=== PATIENT | female | born 2000 | race Two or more races ===

== ENCOUNTER 2024-01-01 08:39 | Emergency (ER) | payer BC ==
[2024-01-01] MEDS ORDERED: ACETAMINOPHEN 325 MG TABLET (FP) ONE (09:35)
[2024-01-01 09:45] VITALS: TEMP 98.3; BMI 30.2
[2024-01-01] MEDS: ACETAMINOPHEN 325 MG TABLET (FP) PO ONE (09:46)
[2024-01-01 09:51] LABS: BASO % 0.4 % (0-2.0); EOS % 2.3 % (0-4.5); HEMATOCRIT 35.8 % (32.4-45.2); HEMOGLOBIN 12.4 GM/dL (10.7-15.3); LYMPH % 27.3 % (8-40); MCH 30.5 pg (25.7-33.7); MCHC 34.7 g/dl (32.0-36.0); MEAN PLT VOLUME 9.8 fl (7.5-11.1); MONO % 5.6 % (3.8-10.2); NEUT % 64.4 % (42.8-82.8); PLATELET COUNT 254 10^3/uL (134-434); RBC 4.06 M/mm3 (3.60-5.2); RDW 13.3 % (11.6-15.6); WHITE BLOOD COUNT 8.6 K/mm3 (4.0-10.0)
[2024-01-01 10:40] LABS: POTASSIUM 3.9 mmol/L (3.5-5.1)
[2024-01-01 10:43] LABS: ALBUMIN 3.4 g/dl (3.4-5.0); CALCIUM 8.7 mg/dL (8.5-10.1)
[2024-01-01 10:44] LABS: BLOOD UREA NITROGEN 12.6 mg/dL (7-18)
[2024-01-01 10:48] LABS: CREATININE 0.6 mg/dL (0.55-1.3); TOT PROT 6.8 g/dl (6.4-8.2)
[2024-01-01 10:49] LABS: BILIRUBIN,TOTAL 0.3 mg/dL (0.2-1)
[2024-01-01 12:21] VITALS: BP 96/57; PULSE 60; RESP 15
== END 2024-01-01 12:27 | disposition home or self-care (01) ==
LOC: JER 08:39
DX: R55 Syncope and collapse (principal); R11.2 Nausea with vomiting, unspecified; R51.9 Headache, unspecified
CPT/HCPCS: 36415; 80053; 84703; 85025; 99283-25